=== PATIENT | female | born 1970 | race Caucasian/White ===

== ENCOUNTER 2016-11-02 13:19 | Emergency (ER) | payer OTHER | END 2016-11-02 17:12 | disposition home or self-care (01) | LOC: ER1 13:19 | DX: M51.26 Other intervertebral disc displacement, lumbar region (principal); M47.896 Other spondylosis, lumbar region; M54.5 Low back pain; Z79.899 Other long term (current) drug therapy | CPT/HCPCS: 72131; 81001; 84703; 99284; J1100 ==

== ENCOUNTER 2016-11-19 15:09 | Emergency (ER) | payer OTHER | END 2016-11-19 16:30 | disposition home or self-care (01) | LOC: ER1 15:09 | DX: G89.29 Other chronic pain (principal); M54.5 Low back pain; K21.9 Gastro-esophageal reflux disease without esophagitis | CPT/HCPCS: 96372; 99283; J1100; J1885 ==

== ENCOUNTER → 2020-06-15 | Outpatient (CLI) | payer OTHER ==
[~2020-06-15] MED LIST: GABAPENTIN600 MG PO; HYDROCODON-ACE1 EAC4 PO; HYDROXYZINE HCL10 MG PO; LEVOCETIRIZINE D5 MG PO; LISINOPRIL-HCT1 EAC2 PO; MECLIZINE HCL25 MG PO; METHOCARBAMOL500 MG PO; OMEPRAZOLE20 MG PO
== END ==
LOC: EMI 06-07 14:30
DX: M54.2 Cervicalgia (principal); M50.21 Other cervical disc displacement, high cervical region; M48.02 Spinal stenosis, cervical region
CPT/HCPCS: 72141

== ENCOUNTER → 2020-12-21 | Day surgery (SDC) | payer OTHER | END | disposition home or self-care (01) | LOC: OR 06:39 | DX: K60.2 Anal fissure, unspecified (principal); K64.1 Second degree hemorrhoids; K64.0 First degree hemorrhoids; K64.4 Residual hemorrhoidal skin tags; I10 Essential (primary) hypertension; F41.9 Anxiety disorder, unspecified; M19.90 Unspecified osteoarthritis, unspecified site; Z87.891 Personal history of nicotine dependence | CPT/HCPCS: 84703; J2704; J7040 ==

== ENCOUNTER → 2021-07-30 | Outpatient (CLI) | payer OTHER | LOC: KOH-I 15:46 | DX: M54.50 Low back pain, unspecified (principal); M51.37 Other intervertebral disc degeneration, lumbosacral region | CPT/HCPCS: 72070; 72100 ==

== ENCOUNTER → 2022-03-01 | Outpatient (CLI) | payer OTHER | LOC: EMI 16:20 | DX: M47.22 Other spondylosis with radiculopathy, cervical region (principal); M48.02 Spinal stenosis, cervical region | CPT/HCPCS: 72141 ==